=== PATIENT | female | born 1935 | race Caucasian/White ===

== ENCOUNTER 2016-08-16 12:33 | Emergency (ER) | payer OTHER ==
[2016-08-16 14:38] VITALS: RESP 18
--- NOTE | 2016-08-16 14:38 | DX ---
PA and Lateral Chest - August 16, 2016 History: Cough. Comparison: PA and lateral chest August 03, 2013. Findings: There is mild peribronchial thickening with patchy consolidation in the right midlung. Ther e is no pneumothorax or pleural effusion. Mild cardiomegaly is stable. Sternotomy wires are intact. M ediastinal surgical clips are present. Mild degenerative change is present in the spine. Impression: 1. Bronchitis with patchy right lung opacity suspicious for pneumonia. 2. Stable cardiomegaly. Findings discussed with Dr. Hong Hutton today at 1433 hours.
[2016-08-16] MEDS ORDERED: NS 500 ML IV ONE (14:45)
--- NOTE | 2016-08-16 14:58 | UCPHY ---
H & P Patient Type: Established Chief Complaint Nursing Narrative: was in [place];. here with constant cough unable to bring anything up x 2.5 weeks Time Seen by Provider: 08/16/16 14:28 HPI/ROS: This patient reports a 2 week history of coughing and now feels a sense of chest congestion but unable to bring up sputum. She reports over the past few days she has developed loss of her appetite and fatigue. She reports that she saw her primary care physician on Thursday, 5 days prior to arrival was started on Flonase steroid nasal spray and guaifenesin with codeine. She reports increased fatigue from guaifenesin with codeine but she does not feel that her symptoms improved which prompted her visit for further evaluation. ROS: No high fevers or chills. She thinks she has had some low-grade subjective fevers. Other constitutional symptoms as noted in HPI. HEENT: Mild headache yesterday that is resolved with Tylenol. Currently no HEENT complaints. Pulmonary: No pleuritic pain. She has mild dyspnea but no respiratory distress. Cardiovascular: No chest pain. No lower extremity swelling. No lightheadedness or heart palpitations noted. GI: No belly pain. No known nausea vomiting diaphoresis. Neuro: No complaints integumentary: No complaints 10 point ROS is otherwise negative. Source: Patient Exam Limitations: No limitations - Personal History Current Tetanus Diphtheria and Acellular Pertussis (TDAP): Yes - Medical/Surgical History PMH: Paroxysmal atrial fibrillation Hypertension Hx Asthma: No Hx Chronic Respiratory Disease: No Hx Diabetes: No Hx Cardiac Disease: Yes Hx Renal Disease: No Hx Cirrhosis: No Hx Alcoholism: No Hx HIV/AIDS: No Hx Splenectomy or Spleen Trauma: No Other PMH: HYPERTENSION,cholesterol,prediabetic,. 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 Her is currently in rehab so she is home alone - Physical Exam Exam: General Appearance: Alert, no distress. Eyes: Pupils equal and round no pallor or injection. ENT, Mouth: Mucous membranes moist. Respiratory: Mild rales in the left mid and right midlung field with minimal rhonchi. Otherwise clear to auscultation bilaterally. Cardiovascular: Regular rate and rhythm. No murmur gallop or rub is appreciated. Gastrointestinal: Abdomen is soft and nontender, no masses, bowel sounds normal. Neurological: Alert with no focal deficits. Skin: Warm and dry, no rashes. Musculoskeletal: Neck is supple nontender. Extremities are symmetrical, full range of motion. No peripheral edema. Psychiatric: Mood and affect are normal. DIFFERENTIAL DIAGNOSIS: After history and physical exam differential diagnosis was considered for pneumonia, bronchitis, CHF, myocardial ischemia or infarct. Constitutional: Initial Vital Signs Temperature (C) 37.2 C 08/16/16 14:35 Heart Rate 86 08/16/16 14:35 Respiratory Rate 18 08/16/16 14:35 Blood Pressure 167/89 H 08/16/16 14:35 O2 Sat (%) 92 08/16/16 14:35 O2 Delivery Mode Room Air Allergies/Adverse Reactions: No Known Allergies Allergy (Verified 08/16/16 14:33) Home Medications: Medication Instructions Recorded Gemfibrozil [Lopid 600 MG (*)] 600 mg PO HS 08/03/13 Losartan Potassium [Cozaar] 25 mg PO DAILY 08/03/13 Cholecalciferol (Vitamin D3) 1,000 unit PO DAILY 04/26/15 [Vitamin D3] Rosuvastatin Calcium [Crestor 20mg 20 mg PO HS 04/26/15 (*)] Metoprolol Tartrate 25 mg PO BID #60 tablet 06/17/15 Aspirin [Aspirin 81mg (OTC)] 81 mg PO DAILY 10/13/15 Herbals/Supplements -Info Only 1 ea PO DAILY 10/13/15 Vitamin B Complex [B Complex] 1 each PO DAILY 10/13/15 Azithromycin [Zithromax] 250 mg PO DAILY #4 tab 08/16/16 Azithromycin [Zithromax] 250 mg PO DAILY #4 tab 08/16/16 Medical Decision Making - Diagnostics EKG Interpretation: 12 lead EKG performed at 3:40 p.m. indication generalized fatigue, rule out coronary syndrome or other Atrial fibrillation at 88 Intervals: Normal throughout [place]: Normal throughout ST segments patient has mild ST depression anteriorly with no previous EKG for comparison. Overall assessment atrial fib at [address] depression in anterolateral leads. ED Course/Re-evaluation: IV 500 cc normal saline bolus Rocephin 1 g IV Zithromax 500 mg p.o. Discussion: Patient here with a community-acquired pneumonia. Despite that she appears well clinically and I think is safe for discharge home with outpatient treatment. She does not meet SIRS criteria. While her EKG is mildly abnormal I suspect this is her baseline. She has a negative troponin and no significant coronary risk factors other than hypertension. No r suggestive findings clinically for coronary syndrome. We did discuss potential for admission but patient prefers to be discharged home and I think that this is safe and appropriate disposition for this patient. - Data Points Laboratory Results: Laboratory Results 08/16/16 15:25 08/16/16 15:25 Microbiology Results: MICROBIOLOGY 08/16/16 15:25 Blood Blood Culture - Final 08/16/16 15:25 Blood Blood Culture - Final Medications Given: Discontinued Medications Azithromycin (Zithromax) 500 mg PO EDNOW ONE PRN Reason: Protocol Stop: 08/16/16 15:49 Last Admin: 08/16/16 16:07 Dose: 500 mg Ceftriaxone Sodium 1 gm/ (Sodium Chloride) 100 mls @ 200 mls/hr IV EDNOW ONE PRN Reason: Protocol Stop: 08/16/16 15:15 Last Admin: 08/16/16 15:30 Dose: 100 mls Sodium Chloride (Ns) 500 mls @ 0 mls/hr IV ONCE ONE PRN Reason: Wide Open Stop: 08/16/16 14:46 Last Admin: 08/16/16 15:00 Dose: 500 mls Departure - Departure Disposition: Home, Routine, Self-Care Clinical Impression: Community acquired pneumonia Clinical Impression: (Ruled Out): Bronchopneumonia Condition: Good Instructions: Viral Pneumonia (ED) Referrals: Najma Nicolas MD [Primary Care Provider] - As per Instructions Prescriptions: Azithromycin [Zithromax] 250 mg PO DAILY #4 tab Azithromycin [Zithromax] 250 mg PO DAILY #4 tab - PQRS PQRS Measurement: 134: Depression screening and followup, PRIME -PHQ2 (12 years and older) Over the last 2 weeks, how often have you been bothered by any of the following problems? 1. Feeling down, depressed, or hopeless? 2. Little interest or pleasure in doing things? Patient answered no to both 1 and 2 130: Documentation of medications. Reviewed all patient medications, doses, route and frequency. 226: Do you smoke? [No.] 47: 65 and older: Advanced care planning. Patient designates surrogate decision maker as [Patient has advanced directive.] 51: 18 years old and older with diagnosis of COPD, spirometry performance. [Spirometry not performed; equipment not available.] NA 52: 18 years old and older with COPD and symptoms of COPD or FEV1<60% predicted prescribed a B Agonist. NA
[2016-08-16 15:33] LABS: % IMMATURE GRANULYOCYTES 1.2 % (0.0-1.1); ABSOLUTE IMMATURE GRANULOCYTES 0.18 10^3/uL (0.00-0.10); ADD DIFF? NO; ADD MORPH? NO; ADD SCAN? NO; ATYPICAL LYMPHOCYTE FLAG 30 (0-99); FRAGMENT RBC FLAG 0 (0-99); HEMATOCRIT 41.2 % (38.0-47.0); HEMOGLOBIN 13.8 g/dL (12.6-16.3); LEFT SHIFT FLG 0 (0-99); LIPEMIA HEMOLYSIS FLAG 80 (0-99); MEAN CELL HEMOGLOBIN 29.7 pg (27.9-34.1); MEAN CELL HEMOGLOBIN CONCENTR. 33.5 g/dL (32.4-36.7); MEAN CELL VOLUME 88.6 fL (81.5-99.8); MEAN PLATELET VOLUME 8.8 fL (8.7-11.7); PLATELET CLUMPS FLAG 20 (0-99); PLATELET COUNT 507 10^3/uL (150-400); RED BLOOD CELL COUNT 4.65 10^6/uL (4.18-5.33); RED CELL DISTRIBUTION WIDTH 13.5 % (11.5-15.2)
--- NOTE | 2016-08-16 15:43 | CPEKG ---
Heart Rate: 88 RR Interval: 682 QRSD Interval: 92 QT Interval: 368 QTC Interval: 446 QRS [place]: 61 T Wave [place]: 39 EKG Severity - ABNORMAL ECG - EKG Impression: ATRIAL FIBRILLATION EKG Impression: BORDERLINE INFERIOR Q WAVES EKG Impression: MINIMAL ST DEPRESSION, ANTEROLATERAL LEADS Electronically Signed By: Jn Brown 20-Aug-2016 08:06:42
[2016-08-16 15:48] LABS: INR 3.07 (0.83-1.16)
[2016-08-16] MEDS ORDERED: AZITHROMYCIN 250 MG TAB PO ONE (15:48)
[2016-08-16 15:49] LABS: ANION GAP 17 mEq/L (8-16); CALCIUM 9.4 mg/dL (8.5-10.4); CARBON DIOXIDE 19 mEq/l (22-31); CHLORIDE 104 mEq/L (97-110); CREATININE 0.6 mg/dL (0.6-1.0); GLOMERULAR FILTRATION RATE > 60; GLUCOSE 104 mg/dL (70-100); POTASSIUM 4.1 mEq/L (3.5-5.2); SODIUM 140 mEq/L (134-144)
[2016-08-16 15:50] LABS: APTT 46.9 SEC (23.0-38.0)
[2016-08-16 17:47] VITALS: BP 157/64; PULSE 82; TEMP 98.6; O2SAT 95
== END 2016-08-16 17:57 | disposition home or self-care (01) ==
LOC: CED 12:33
DX: R05 Cough (principal); R09.89 Other specified symptoms and signs involving the circulatory and respiratory systems; F50.89 Other specified eating disorder; R53.83 Other fatigue; I48.0 Paroxysmal atrial fibrillation; I10 Essential (primary) hypertension; Z87.891 Personal history of nicotine dependence
CPT/HCPCS: 71020; 93005; 96365; G0463; J0696; 80048-PO; 83605-PO; 84484-PO; 85025-PO; 85610-PO; 85730-PO; 87400-PO; 96361-PO

== ENCOUNTER → 2017-03-20 | Outpatient (CLI) | payer OTHER | LOC: BHCLAF 09:00 | PROVIDERS: ATTEND Internal Medicine Cardiovascular Disease | DX: I48.91 Unspecified atrial fibrillation (principal); I25.10 Atherosclerotic heart disease of native coronary artery without angina pectoris; E78.5 Hyperlipidemia, unspecified; I97.3 Postprocedural hypertension | CPT/HCPCS: 93005-PO ==

== ENCOUNTER → 2017-04-09 | Outpatient (CLI) | payer OTHER | LOC: CIMAGING 11:55 | PROVIDERS: ATTEND Family Medicine | DX: J40 Bronchitis, not specified as acute or chronic (principal); J43.9 Emphysema, unspecified; I51.7 Cardiomegaly; Z95.1 Presence of aortocoronary bypass graft | CPT/HCPCS: 71020-PO ==

== ENCOUNTER → 2017-09-07 | Outpatient (CLI) | payer OTHER | LOC: BHFA 10:00 | PROVIDERS: ATTEND Internal Medicine Cardiovascular Disease | DX: I48.91 Unspecified atrial fibrillation (principal); R06.02 Shortness of breath ==

== ENCOUNTER → 2017-09-08 | Outpatient (CLI) | payer OTHER | LOC: BHFA 09:00 | PROVIDERS: ATTEND Internal Medicine Cardiovascular Disease | DX: I48.91 Unspecified atrial fibrillation (principal) | CPT/HCPCS: 78452; 93017; A9500; J2785 ==

== ENCOUNTER → 2017-10-27 | Outpatient (CLI) | payer OTHER | LOC: CIMAGING 17:52 | PROVIDERS: ATTEND Internal Medicine | DX: R05 Cough (principal); M47.899 Other spondylosis, site unspecified; J98.4 Other disorders of lung | CPT/HCPCS: 71046-PO ==

== ENCOUNTER 2018-06-04 12:44 | Emergency (ER) | payer OTHER ==
--- NOTE | 2018-06-04 13:05 | EDPHY ---
H & P Stated Complaint: heart palpitations started last night, feels like in afib Time Seen by Provider: 06/04/18 12:48 HPI/ROS: 82 yo F presents c/o dizziness for many months, has a hx of paroxysmal atrial fibrillation on metroprolol, began to have palpitations in the middle of the night. She states this happens every once in awhile, she has been admitted for a rapid atrial fib before. No unusual shortness of breath or leg swelling. She does have a past hx of right ankle fracture, and often has a little bit of swelling in that leg. No new medications. No cough, no fever or chills. Review of systems as per hpi General no fever no chills no weakness HEENT no eye pain no eye discharge. No eye redness, no sore throat Respiratory no cough, pos shortness of breath with exertion Cardiac no chest pain, no peripheral edema, pos palpitations GI no abdominal pain, no diarrhea, no constipation, no nausea, no vomiting no flank pain, no hematuria, no dysuria Musculoskeletal no myalgias, no joint pain Heme no easy bruising, no easy bleeding Endo no polyuria, no polydipsia Skin no rashes, no pruritus Neuro no syncope, pos dizziness, no headaches Psych is no suicidal ideation, no homicidal ideation Source: Patient, Family Exam Limitations: No limitations - Medical/Surgical History Hx Asthma: No Hx Chronic Respiratory Disease: No Hx Diabetes: No Hx Cardiac Disease: Yes Hx Renal Disease: No Hx Cirrhosis: No Hx Alcoholism: No Hx HIV/AIDS: No Hx Splenectomy or Spleen Trauma: No Other PMH: HYPERTENSION,cholesterol,prediabetic, afib, knee replacement. 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 - Family History Significant Family History: No pertinent family hx - Social History Smoking Status: Former smoker Alcohol Use: None Drug Use: None - Physical Exam Exam: 82 yo F alert and oriented in nad non toxic appearance, afebrile afib 125 afebrile at, nc neck supple lungs cta bilat heart irreg irreg with mrg abd obese nabs soft nt ext no cce neuro alert and oriented , cn intact, knott, no gross deficits Constitutional: Initial Vital Signs Temperature (C) 36.6 C 06/04/18 12:53 Heart Rate 126 H 06/04/18 12:53 Respiratory Rate 18 06/04/18 12:53 Blood Pressure 145/98 H 06/04/18 12:53 O2 Sat (%) 94 06/04/18 12:53 O2 Delivery Mode Room Air Allergies/Adverse Reactions: No Known Allergies Allergy (Verified 06/04/18 12:53) Home Medications: Medication Instructions Recorded Losartan Potassium [Cozaar] DAILY06 08/03/13 Cholecalciferol (Vitamin D3) DAILY 04/26/15 [Vitamin D3] Rosuvastatin Calcium [Crestor 20mg DAILY06 04/26/15 (*)] Aspirin [Aspirin 81mg (OTC)] DAILY06 10/13/15 Vitamin B Complex [B Complex] DAILY 10/13/15 Metoprolol Tartrate BID 03/27/17 Warfarin Sodium HS 03/27/17 ALPRAZolam 02/12/18 Escitalopram Oxalate 02/12/18 Meclizine HCl [Meclizine HCl 25 mg 25 mg PO TID PRN #20 tab 02/12/18 (RX,OTC)] Lasix 06/04/18 Melatonin 06/04/18 Medical Decision Making - Diagnostics EKG Interpretation: atrial fibrillation 120-130, no st elevation ED Course/Re-evaluation: pt seen and evaluated for rapid afib/flutter with plpitations, mild dizziness and shortness of breath with exertion ekg initally rate 116-126, afib/flutter after a total of metoprolol 10 mg, pt now at rate 108, 2:1 AV block pt states she feels improved. I discussed the case with the hospitalist is willing to admit her if she continues to be symptomatic. I paged the color buffer configuration engineer at [facility]. trop neg dimer neg bnp 1700 , no signs of fluid overload, no edema, no fluid on cxr, good pulse ox on room air cmp wnl inr 3.0, therapeutic Imp Palpitations, afib/flutter Slowed but not converted, therapeutic inr Plan DC home Return if worsening F/U with color buffer and primary care this upcoming week. Differential Diagnosis: differential diagnosis considered but not limited to: mi, afib rvr, other arrythmia, pulmonary embolus, pneumonia - Data Points Medications Given: Discontinued Medications Sodium Chloride (Ns) 500 mls @ 0 mls/hr IV ONCE ONE PRN Reason: Wide Open Stop: 06/04/18 13:46 Last Admin: 06/04/18 13:47 Dose: 500 mls Metoprolol Tartrate (Lopressor Injection) 5 mg IVP EDNOW ONE Stop: 06/04/18 13:08 Last Admin: 06/04/18 13:28 Dose: 5 mg Metoprolol Tartrate (Lopressor Injection) 2.5 mg IVP EDNOW ONE Stop: 06/04/18 13:59 Last Admin: 06/04/18 14:04 Dose: 2.5 mg Metoprolol Tartrate (Lopressor Injection) 2.5 mg IVP EDNOW ONE Stop: 06/04/18 14:24 Last Admin: 06/04/18 14:25 Dose: 2.5 mg Point of Care Test Results: CBC CBC Collection Date 06/04/18 CBC Collection Time 13:10 WBC 8.3 RBC 4.94 HGB 15.3 HCT 44.3 PLT 315 Neut # 6.4 Neut 77.7 LYMPH # 1.7 LYMPH 19.9 Other WBC # 0.2 Other WBC 2.4 MCV 89.7 Chemistry 06/04/18 06/04/18 13:12 13:11 POC Sodium 144 mEq/L mEq/L (135-145) POC Potassium 3.6 mEq/L mEq/L (3.3-5.0) POC Chloride 100.0 mEq/L mEq/L (97-110) POC Total CO2 24 mEq/L mEq/L (22-31) POC BUN 9 mg/dL mg/dL (7-23) POC Creatinine 0.7 mg/dL mg/dL (0.6-1.0) POC Glucose 209 mg/dL H mg/dL (70-100) POC Calcium 9.9 mg/dL mg/dL (8.5-10.4) POC Troponin I 0.01 ng/mL ng/mL (0.00-0.08) D-Dimer D-Dimer Collection Date 06/04/18 D-Dimer Collection Date 06/04/18 D-Dimer Collection Time 13:10 D-Dimer Collection Time 13:05 D-Dimer (ng/ml) <100 D-Dimer (ng/ml) <100 Departure - Departure Disposition: Home, Routine, Self-Care Clinical Impression: Paroxysmal atrial fibrillation with rapid ventricular response, Atrial flutter by electrocardiogram Condition: Good Instructions: A-fib (Atrial Fibrillation) (ED) Referrals: Manfred Michael MD [Primary Care Provider] - As per Instructions
[2018-06-04] MEDS ORDERED: METOPROLOL TARTRATE 5 MG/5 ML INJ IVP ONE ×3 (13:07→14:23)
[2018-06-04] MEDS ORDERED: NS 500 ML IV ONE (13:45)
[2018-06-04] MEDS ORDERED: NS 1,000 ML IV ONE (13:46)
[2018-06-04 15:56] VITALS: BP 133/75
== END 2018-06-04 15:52 | disposition home or self-care (01) ==
LOC: CED 12:44
DX: I48.0 Paroxysmal atrial fibrillation (principal); I48.92 Unspecified atrial flutter
CPT/HCPCS: 71046-PO; 80048-PO; 84484-PO; 96374

== ENCOUNTER → 2018-06-10 | Outpatient (CLI) | payer OTHER | LOC: FCPNEURO 21:30 | PROVIDERS: ATTEND Psychiatry & Neurology Sleep Medicine | DX: G47.33 Obstructive sleep apnea (adult) (pediatric) (principal) ==

== ENCOUNTER → 2018-07-04 | Outpatient (CLI) | payer OTHER | LOC: FCPNEURO 20:00 | PROVIDERS: ATTEND Psychiatry & Neurology Sleep Medicine | DX: G47.33 Obstructive sleep apnea (adult) (pediatric) (principal); G47.34 Idiopathic sleep related nonobstructive alveolar hypoventilation; G47.61 Periodic limb movement disorder ==